=== PATIENT | female | born 1985 | race Caucasian/White ===

== ENCOUNTER → 2020-11-03 09:46 | Outpatient (BNVA) | payer OTHER, SELFPAY | PROVIDERS: Family Provider Family Medicine; PCP Nurse Practitioner Family; Visit Provider Nurse Practitioner Family | DX: E03.9 Hypothyroidism, unspecified (principal); Z76.89 Persons encountering health services in other specified circumstances; Z68.35 Body mass index [BMI] 35.0-35.9, adult | CPT/HCPCS: 80053; 80061; 84439; 84443; 84481; 85025 ==

== ENCOUNTER → 2020-11-10 07:45 | Outpatient (BNVA) | payer OTHER, SELFPAY | PROVIDERS: Family Provider Family Medicine; PCP Nurse Practitioner Family; Visit Provider Nurse Practitioner Family | DX: Z01.419 Encounter for gynecological examination (general) (routine) without abnormal findings (principal) | CPT/HCPCS: 88175 ==

== ENCOUNTER → 2020-12-02 13:50 | Outpatient (BNVA) | payer OTHER, SELFPAY | PROVIDERS: Family Provider Family Medicine; PCP Nurse Practitioner Family; Visit Provider Registered Nurse Neonatal Intensive Care | DX: R10.9 Unspecified abdominal pain (principal) | CPT/HCPCS: 81000 ==

== ENCOUNTER → 2021-01-05 15:58 | Outpatient (BNVA) | payer OTHER, SELFPAY | PROVIDERS: Family Provider Family Medicine; PCP Nurse Practitioner Family; Visit Provider Nurse Practitioner Family | DX: E03.9 Hypothyroidism, unspecified (principal) | CPT/HCPCS: 84443 ==

== ENCOUNTER 2021-01-28 08:53 | Outpatient (CLI) | payer OTHER, SELFPAY ==
--- NOTE | 2021-01-28 09:00 | MM_ITS ---
WS: [id number] Exam: [place] [id number] Date/Time of Exam: 01/28/2021 9:13 AM Reason For Exam: N63.0 - Unspecified lump in unspecified breast VIEWS: MLO, CC, and ML views both breasts. No prior exams. Findings: There was no sign of mass, architectural distortion or suspicious calcification in either breast. Fa tty MM/[place] [id number] Impression: BI-RADS: 0-Incomplete: Need additional imaging evaluation. Regional ultrasound of the right breast at the site of patient's palpable lump would be indicated. FOLLOW-UP: Need Additional Imaging This mammogram was also analyzed by the Computer Aided Detection System R2 Imag e Communication Engineer.
--- NOTE | 2021-01-28 09:30 | US_ITS ---
WS: [id number] Exam: US breast RT limited* [id number] Date/Time of Exam: 01/28/2021 9:44 AM Reason For Exam: R22.30 - Localized swelling, mass and lump, unspecified u... Regional ultrasound of the axillary region of the right breast is performed. Reason for exam is lump. A subcutaneous hypoechoic ovoid density with vascular flow is noted in the right axilla and most like ly represents a lymph node. No suspicious mass or nodule was identified in this region. Recommendations: If the patient does not respond to conservative management, follow-up imaging to elaine ntify any change might be considered. US/US breast RT limited* [id number] IMPRESSION: 1. Ovoid subcutaneous hypoechoic density in the right axilla measuring 8 x 3 mm having the appearance of a small lymph node. 2. No suspicious mass or nodule identified otherwise. BI-RADS Category 2.
== END 2021-01-28 08:54 | disposition home or self-care (01) ==
LOC: RADSHAW 09:04
PROVIDERS: PCP Nurse Practitioner Family; Visit Provider Nurse Practitioner Family
DX: M79.621 Pain in right upper arm; N63.10 Unspecified lump in the right breast, unspecified quadrant; R22.31 Localized swelling, mass and lump, right upper limb
CPT/HCPCS: 76642; 77066

== ENCOUNTER → 2022-02-03 16:30 | Outpatient (BNVA) | payer OTHER, SELFPAY | PROVIDERS: PCP Nurse Practitioner Family; Visit Provider Nurse Practitioner Family | DX: Z01.419 Encounter for gynecological examination (general) (routine) without abnormal findings (principal); R87.629 Unspecified abnormal cytological findings in specimens from vagina; Z12.31 Encounter for screening mammogram for malignant neoplasm of breast; E03.9 Hypothyroidism, unspecified | CPT/HCPCS: 80053; 80061; 84443; 88175 ==

== ENCOUNTER 2022-02-16 14:47 | Emergency (ER) | payer MEDICAID, SELFPAY ==
[2022-02-16 16:41] VITALS: BP 136/90; PULSE 87; RESP 18; TEMP 36.6; O2SAT 95; BMI 26.5
[2022-02-16 17:15] LABS: Basophils # 0.1 10^3/uL (0.0-0.1); Basophils % 0.9 %; Eosinophils # 0.3 10^3/uL (0.0-0.8); Eosinophils % 2.8 %; Hematocrit 43.7 % (37.0-47.0); Hemoglobin 14.6 g/dL (11.5-15.3); Lymphocytes # 3.3 10^3/uL (0.8-4.8); Lymphocytes % 28.7 %; Mean Corpuscular HGB Conc 33.4 g/dL (30.0-36.0); Mean Corpuscular Hemoglobin 29.6 pg (28.0-34.0); Mean Corpuscular Volume 88.6 fl (81-99); Mean Platelet Volume 9.3 fL (7.4-10.4); Monocytes # 0.7 10^3/uL (0.2-0.9); Monocytes % 6.1 %; Neutrophils # 7.09 10^3/uL (1.8-7.7); Neutrophils % 61.2 %; Nucleated Red Blood Cells % 0 %; Platelet Count 285 10^3/cmm (130-400); Red Blood Count 4.93 10^6/uL (4.1-5.3); Red Cell Distribution Width 13.8 % (12.1-15.1); White Blood Count 11.6 10^3/uL (4.0-10.0)
[2022-02-16 17:50] LABS: Troponin(5th) Baseline 6 ng/L (0-10)
[2022-02-16 18:00] LABS: Alanine Aminotransferase 16 U/L (0-33); Albumin Level 4.3 g/dL (3.5-5.2); Alkaline Phosphatase 77 U/L (35-105); Anion Gap 13.9 (5-19); Aspartate Amino Transferase 25 U/L (0-32); Blood Urea Nitrogen 14 mg/dL (6-20); Calcium 9.9 mg/dL (8.5-10.5); Carbon Dioxide 23 mmol/L (22-29); Chloride 102 mmol/L (98-107); Globulin 3.6 g/dL (1.3-4.6); Glomerular Filtration Rate 93.6 mL/min (90-130); Glucose 87 mg/dL (65-115); Osmolality Calculated 280 mOsm/kg (285-295); Potassium 3.9 mmol/L (3.5-5.1); Sodium 135 mmol/L (136-145); Thyroid Stimulating Hormone 18.71 uIU/mL (0.27-4.20); Total Bilirubin 0.4 mg/dL (0.15-1.2); Total Protein 7.9 g/dL (6.6-8.7)
== END 2022-02-16 17:26 | disposition left against medical advice (07) ==
PROVIDERS: Emergency Provider Family Medicine; PCP Nurse Practitioner Family
DX: Z53.21 Procedure and treatment not carried out due to patient leaving prior to being seen by health care provider (principal)
CPT/HCPCS: 36415; 80053; 84443; 84484; 85025; 99283

== ENCOUNTER → 2022-02-17 12:28 | Outpatient (BNVA) | payer OTHER, MEDICAID, SELFPAY | PROVIDERS: PCP Nurse Practitioner Family; Visit Provider Family Medicine | DX: E03.9 Hypothyroidism, unspecified (principal); E05.80 Other thyrotoxicosis without thyrotoxic crisis or storm; Z09 Encounter for follow-up examination after completed treatment for conditions other than malignant neoplasm | CPT/HCPCS: 84439 ==

== ENCOUNTER 2022-02-28 08:30 | Outpatient (CLI) | payer OTHER, MEDICAID, SELFPAY ==
--- NOTE | 2022-02-28 08:45 | MM_ITS ---
WS: [id number] BILATERAL SCREENING DIGITAL TOMOSYNTHESIS MAMMOGRAM WITH CAD HISTORY: SCREEN COMPARISON: 01/28/2021 Bilateral CC and MLO views with tomosynthesis and synthetic mammography submitted. Computer aided det ection analyzed. Breast composition: There are scattered areas of fibroglandular density. No suspicious masses, microc alcifications or architectural distortion. MM/[place] [id number] IMPRESSION: BI-RADS: 1-Negative FOLLOW UP: 1 Year Follow-up
== END 2022-02-28 08:31 | disposition home or self-care (01) ==
LOC: RAD 08:31
PROVIDERS: PCP Nurse Practitioner Family; Visit Provider Nurse Practitioner Family
DX: Z12.31 Encounter for screening mammogram for malignant neoplasm of breast (principal)
CPT/HCPCS: 77063; 77067

== ENCOUNTER → 2022-07-03 09:22 | Outpatient (BNVA) | payer OTHER, MEDICAID, SELFPAY | PROVIDERS: PCP Nurse Practitioner Family; Visit Provider Nurse Practitioner Family | DX: E03.9 Hypothyroidism, unspecified (principal) | CPT/HCPCS: 84443 ==